=== PATIENT | female | born 2000 | race African-American/Black ===

== ENCOUNTER 2025-03-30 02:50 | Emergency (ER) | payer OTHER ==
[~2025-03-30] VITALS: Ht 162.6 cm; Wt 69.2 kg
[2025-03-30 03:21] VITALS: BP 133/79; PULSE 74; RESP 16; TEMP 98.1; O2SAT 98
--- NOTE | 2025-03-30 03:24 | ED.PDOC ---
Back pain HPI Chief Complaint: Upper Extremity Time Seen by MD: 02:57 Reviewed Notes: Manager Employment Notes, Medications, Allergies Allergies: Coded Allergies: NO KNOWN ALLERGIES (Unverified , 03/12/15) Information Source: Patient Past Medical History PAST MEDICAL HISTORY: Denies Surgical History: Denies all surgeries CHIEF DIGITAL OFFICER History: No Pertinent CHIEF DIGITAL OFFICER History Family History Family History: Unknown Social History Smoker: Non-Smoker Alcohol: Denies ETOH Use Drugs: Denies Drug Use Lives In: Home Constitutional: denies: chills, diaphoresis, fatigue, fever, malaise, sweats, weakness, others EENTM: denies: blurred vision, double vision, ear bleeding, ear discharge, ear drainage, ear pain, ear ringing, eye pain, eye redness, hearing loss, mouth pain, mouth swelling, nasal discharge, nose bleeding, nose congestion, nose pain, photophobia, tearing, throat pain, throat swelling, voice changes, others Respiratory: denies: cough, hemoptysis, orthopnea, SOB at rest, shortness of breath, SOB with excertion, stridor, wheezing, others Cardiovascular: denies: chest pain, dizzy spells, diaphoresis, Dyspnea on exertion, edema, irregular heart beat, left arm pain, lightheadedness, palpitations, PND, syncope, others Gastrointestinal: denies: abdomen distended, abdominal pain, blood streaked bowels, constipated, diarrhea, dysphagia, difficulty swallowing, hematemesis, melena, nausea, poor appetite, poor fluid intake, rectal bleeding, rectal pain, vomiting, others Genitourinary: denies: abnormal vagina bleeding, burning, dyspareunia, dysuria, flank pain, frequency, hematuria, incontinence, pain, , vagina discharge, urgency, others Neurological: denies: dizziness, fainting, headache, left sided numbness, left sided weakness, numbness, paresthesia, pre-existing deficit, right sided numbness, right sided weakness, seizure, speech problems, tingling, tremors, weakness, others Musculoskeletal: reports: others (RIGHT HAND PAIN ); denies: back pain, gout, joint pain, joint swelling, muscle pain, muscle stiffness, neck pain Integumetry: denies: bruises, change in color, change in hair/nails, dryness, laceration, lesions, lumps, rash, wounds, others Allergic/Immunocompromised: denies: Difficulty Healing, Frequent Infections, Hi ves, Itching, others Hematologic/Lymphatic: denies: anemia, blood clots, easy bleeding, easy bruising, swollen glands, others Endocrine: denies: excessive hunger, excessive sweating, excessive thirst, excessive urination, flushing, intolerance to cold, intolerance to heat, unexplained weight gain, unexplained weight loss, others Psychiatric: denies: anxiety, bipolar disorder, depression, hopeless, panic disorder, schizophrenia, sleepless, suicidal, others Physical Exam General Appearance: No Apparent Distress, Normal HEENT: Pharynx Normal Neck: Full Range of Motion, Non-Tender Respiratory: Lungs Clear, No Respiratory Distress, Normal Breath Sounds Cardiovascular: No Murmur, Normal Peripheral Pulses, Regular Rate/Rhythm Breast Exam: Deferred Gastrointestinal: Non Tender, Soft Genitalia: Deferred Pelvic: Deferred Rectal: Deferred Extremities: Normal capillary refill, Normal inspection, Normal range of motion Musculoskeletal : Location: Right Extremity Location: Hand (TRACE ECCHYMOSIS DORSUM ASPECT 5TH METACARPAL AREA ALONG WITH TRACE EDEMA STRENGTH SENSORY MOTION INTACT POSITIVE RADIAL PULSE) Apperance: Normal Neurologic: Alert, computer graphics illustrator II-XII nml as Tested, No Motor Deficits, Normal Affect, Normal Mood, No Sensory Deficits Cerebellar Function: Normal Reflexes: Normal Skin: Dry, Normal Color, Warm Lymphatic: No Adenopathy Was a procedure done? Was a procedure done?: No Back Pain Differential Dx Differential Diagnosis: Fracture, Musculoskeletal Pain, Strain X-Ray, Labs, Meds, VS Vital Signs Date Time Temp Pulse Resp B/P (MAP) Pulse Ox O2 Delivery O2 Flow Rate FiO2 03/30/25 03:21 98.1 74 16 133/79 (97) 98 98.1 X-Ray, Labs, Meds, VS Comment Impression: Small avulsion fracture involving the ulnar aspect of the base of the fifth metacarpal with mild associated soft tissue edema. Time of 1ST Reevaluation: 03:22 Reevaluation 1ST: Unchanged Time of 2ND Reevaluation: 04:27 Reevaluation 2ND: Improved Patient Education/Counseling: Diagnosis, Treatment, Prognosis, Need For Follow Up Family Education/Counseling: No Family Present SEPSIS Sepsis Screen Physician Orders R Hand 3 View Xray (03/30/25 03:18) Apply Ice To Affected Area (03/30/25 03:18) Vital Signs Date Time Temp Pulse Resp B/P (MAP) Pulse Ox O2 Delivery O2 Flow Rate FiO2 03/30/25 03:21 98.1 74 16 133/79 (97) 98 98.1 Departure 1 Departure Time of Disposition: 04:26 Impression: Primary Impression: Closed fracture of metacarpal bone of right hand Qualified Codes: S62.316A - Displaced fracture of base of fifth metacarpal bone, right hand, initial encounter for closed fracture Disposition: 01 HOME / SELF CARE / HOMELESS Condition: Stable Discharged With: Self Critical Care Note Critical Care Time?: No Stability Stability form required: LANDY Blankenship Mar 30, 2025 03:24
--- NOTE | 2025-03-30 04:15 | DVH ---
Examination: X-Ray Right hand Clinical Indication: Right hand pain and swelling. Comparison: None. Technique: AP, lateral and oblique views of the right hand were submitted. Findings: Small avulsion fracture involving the ulnar aspect of the base of the fifth metacarpal with mild asso ciated soft tissue edema. There is no evidence of acute dislocation or osseous lesion. The carpal bones are well aligned. The joint spaces are well-preserved. Impression: Small avulsion fracture involving the ulnar aspect of the base of the fifth metacarpal with mild asso ciated soft tissue edema. Electronically Signed 03/30/2025 04:14 Michaela Miller
[2025-03-30] MEDS: IBUPROFEN 600 MG TAB PO ONE (04:39)
== END 2025-03-30 04:48 | disposition home or self-care (01) ==
LOC: ER 02:50
DX: S62.316A Displaced fracture of base of fifth metacarpal bone, right hand, initial encounter for closed fracture (principal); X58.XXXA Exposure to other specified factors, initial encounter; Y93.89 Activity, other specified; Y92.89 Other specified places as the place of occurrence of the external cause; Y99.8 Other external cause status
CPT/HCPCS: 73130